=== PATIENT | male | born 1975 | race Caucasian/White ===

== ENCOUNTER 2020-11-27 09:21 | Emergency (ER) | payer SELFPAY ==
[~2020-11-27] VITALS: Ht 175.3 cm; Wt 85.9 kg
[2020-11-27 09:25] VITALS: BP 170/92
--- NOTE | 2020-11-27 09:43 | PHYS DOC ---
General Adult EDM: Chief Complaint: ABSCESS HPI: HPI: Patient is a 44 year old male patient presented to the ED today with an abscess on the right thigh that began 3 days ago. Patient denies any fever. States the area is draining Review of Systems: Review of Systems: Constitutional: Denies fever or chills. [] Musculoskeletal: Denies back pain or joint pain. [] Integument: Reports right thigh abscess Neurologic: Denies headache, focal weakness or sensory changes. [] Psychiatric: Denies depression or anxiety. [] Heart Score: Risk Factors: Risk Factors: DM, Current or recent (<one month) smoker, HTN, HLP, family history of CAD, obesity. Risk Scores: Score 0 - 3: 2.5% MACE over next 6 weeks - Discharge Home Score 4 - 6: 20.3% MACE over next 6 weeks - Admit for Clinical Observation Score 7 - 10: 72.7% MACE over next 6 weeks - Early Invasive Strategies Allergies: Allergies: Allergies Coded Allergies Type Severity Reaction Last Updated Verified tramadol Allergy Intermediate heart racing 11/27/20 Yes Physical Exam: PE: Constitutional: Well developed, well nourished, no acute distress, non-toxic appearance. [] Skin: Right medial thigh with an open abscess roughly 2 x 2 cm. The open area is 0.3 x 0.3 cm with surrounding cellulitis. It is draining yellow bloody material which was expressed in the room. The area is warm and tender to touch. Back: No tenderness, no CVA tenderness. [] Extremities: No tenderness, no cyanosis, no clubbing, ROM intact, no edema. [] Neurologic: Alert and oriented X 3, normal motor function, normal sensory function, no focal deficits noted. [] Psychologic: Affect normal, judgement normal, mood normal. [] EKG: EKG: [] Radiology/Procedures: Radiology/Procedures: [] Course & Med Decision Making: Course & Med Decision Making Pertinent Labs and Imaging studies reviewed. (See chart for details) This is a 44-year-old male patient presenting to the ED today with an abscess to the right thigh that began 2 days ago. Abscess is open and draining. Tetanus was updated. Discharged on Bactrim. Warm compresses and good care to the area recommended. Provided return precautions and discharged in stable condition. Dragon Disclaimer: Dragjerald Disclaimer: This electronic medical record was generated, in whole or in part, using a voice recognition dictation system. Departure Departure Impression: Primary Impression: Cellulitis and abscess of right lower extremity Disposition: 01 DC HOME SELF CARE/HOMELESS Condition: STABLE Patient Instructions: Abscess, [id number] Additional Instructions: You have an abscess to the right thigh that is open and draining. Continue applying warm compresses to the area twice a day. Keep the area clean, dry and covered if it is draining. Take the prescribed antibiotics until completed. Please follow-up with your own doctor in 1 to 2 weeks Scripts Sulfamethoxazole/Trimethoprim (BACTRIM 400-80 MG TABLET) 1 Each Tablet 1 TAB PO BID for 10 Days, #20 TAB 0 Refills Prov: ABHIJIT NUNO APRN 11/27/20 ABHIJIT NUNO APRN Nov 27, 2020 09:43
[2020-11-27] MEDS ORDERED: SULF1TAB23 PO (09:44)
[2020-11-27] MEDS ORDERED: DIPH,PERTUSS(ACELL),TET VAC/PF 0.5 ML SYRINGE. VAX IM ONE (09:45)
== END 2020-11-27 09:54 | disposition home or self-care (01) ==
LOC: ER 09:21
DX: L03.115 Cellulitis of right lower limb (principal); Z88.6 Allergy status to analgesic agent
CPT/HCPCS: 90471; 90715; 99283

== ENCOUNTER 2021-06-22 13:34 | Emergency (ER) | payer SELFPAY ==
[~2021-06-22] VITALS: Ht 175.3 cm; Wt 81.8 kg
[~2021-06-22 13:34] MED LIST: SULF1TAB23 PO
[2021-06-22 16:01] VITALS: BP 150/90
[2021-06-22] MEDS ORDERED: AMOX500C PO (16:10)
--- NOTE | 2021-06-22 16:10 | PHYS DOC ---
Past Medical History Past Medical History: No Pertinent History (NOEMI BEE [employer]ING [employer]PPORT [employer]) Past Surgical History: Splenectomy, Other Additional Past Surgical Histo: [facility] Smoking Status: Current Every Day Smoker Alcohol Use: Sober ([employer]I [employer]) General Adult EDM: Chief Complaint: DENTAL PROBLEM HPI: HPI: Patient is a 45 year old male who presents with 24 hours of right-sided facial swelling and pressure and pain due to abscessed tooth on the right upper canine area. He has many broken teeth and cavities in his mouth. He states he is going to the dental school tomorrow. He is here wanting an antibiotic. Has a history of smoking. Denies fever, body aches, vision change, nasal congestion. (NOEMI BEE [employer]ING SUPPORT [employer]IST) Review of Systems: Review of Systems: Constitutional: Denies fever or chills. [] Eyes: Denies change in visual acuity. [] HENT: Denies nasal congestion or sore throat. +Dental pain. +Facial swelling [] Respiratory: Denies cough or shortness of breath. [] Cardiovascular: Denies chest pain or edema. [] GI: Denies abdominal pain, nausea, vomiting, bloody stools or diarrhea. [] : Denies dysuria. [] Musculoskeletal: Denies back pain or joint pain. [] Integument: Denies rash. [] Neurologic: Denies headache, focal weakness or sensory changes. [] Endocrine: Denies polyuria or polydipsia. [] Lymphatic: Denies swollen glands. [] Psychiatric: Denies depression or anxiety. 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 [] HENT: Normocephalic, atraumatic, bilateral external ears normal, oropharynx moist, no oral exudates, nose normal. Many dental caries. Any broken teeth. Right-sided upper dental pain with abscess [] Eyes: PERRLA, EOMI, conjunctiva normal, no discharge. [] Neck: Normal range of motion, no tenderness, supple, no stridor. [] Cardiovascular:Heart rate regular rhythm, no murmur [] Lungs & Thorax: Bilateral breath sounds clear to auscultation [] Abdomen: Bowel sounds normal, soft, no tenderness, no masses, no pulsatile mass es. [] Skin: Warm, dry, no erythema, no rash. [] Back: No tenderness, no CVA tenderness. [] Extremities: No tenderness, no cyanosis, no clubbing, ROM intact, no edema. [] Neurologic: Alert and oriented X 3, normal motor function, normal sensory function, no focal deficits noted. [] Psychologic: Affect normal, judgement normal, mood normal. [] (NOEMI BEE APRN) Current Patient Data: Vital Signs: Vital Signs Date Time Temp Pulse Resp B/P (MAP) Pulse Ox O2 Delivery O2 Flow Rate FiO2 06/22/21 16:01 97.5 64 18 150/90 (110) 99 Room Air 97.5 (JALIL PEARSON DO) EKG: EKG: [] (NOEMI BEE APRN) Radiology/Procedures: Radiology/Procedures: [] (NOEMI BEE APRN) Course & Med Decision Making: Course & Med Decision Making Pertinent Labs and Imaging studies reviewed. (See chart for details) See HPI. Alert and oriented x4. Ambulatory steady gait. Speaks in full clear sentences. 1+ right-sided facial swelling with pressure with palpation. He rates his pain 8 out of 10. Many broken teeth and dental caries. No swelling under the tongue or pain. Afebrile. No pain to the upper roof of the mouth. [] (NOEMI BEE APRN) Course & Med Decision Making I have reviewed and was available for consultation in the emergency department for this patient that was seen by midlevel provider. Agree with plan. Jalil Pearson DO (JALIL PEARSON DO) Shan Disclaimer: Shan Disclaimer: This electronic medical record was generated, in whole or in part, using a voice recognition dictation system. (NOEMI BEE APRN) Departure Departure Impression: Primary Impression: Dental abscess Disposition: 01 HOME / SELF CARE / HOMELESS Condition: STABLE Referrals: NO PCP (PCP) Patient Instructions: Dental Abscess, Dental Caries Additional Instructions: Follow-up with a dentist as soon as possible. Take medication as prescribed and with food. Take 800 mg of ibuprofen every 8 hours. Scripts Amoxicillin (AMOXICILLIN) 500 Mg Capsule 1 CAP PO BID, #20 CAP Prov: NOEMI BEE APRN 06/22/21 NOEMI BEE APRN Jun 22, 2021 16:10 JALIL PEARSON DO Jun 22, 2021 17:22
== END 2021-06-22 16:49 | disposition home or self-care (01) ==
LOC: ER 13:34
DX: K04.7 Periapical abscess without sinus (principal); F17.200 Nicotine dependence, unspecified, uncomplicated; Z88.6 Allergy status to analgesic agent
CPT/HCPCS: 99283